=== PATIENT | male | born 1980 | race Caucasian/White ===

== ENCOUNTER 2016-12-17 20:30 | Inpatient (IN) | payer OTHER ==
[~2016-12-17] VITALS: Ht 170.2 cm; Wt 94.3 kg
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
[2016-12-17] MEDS ORDERED: KLONOPIN1 MG (21:09)
--- NOTE | 2016-12-17 21:33 | NUR ---
PT REMOVED SELF FROM MONITOR AND STATED "I AM LEAVING". PT PROCEEDED TO URINATE ON FLOOR. PT ENCOURAGED TO GET BACK IN BED. SECURITY AT BEDSIDE. PT LAID ON RIGHT SIDE AND PLACED BACK ON MONITOR. MD WATSON
[2016-12-17 21:38] LABS: BASOPHIL % 0.5 % (0-2); PLATELET COUNT 309 x10^3mcL (130-400); RED CELL DISTRIBUTION WIDTH 13.9 % (11.5-14.5)
[2016-12-17 21:41] LABS: AMPHETAMINE QUAL UR NONE DETECTED (NEG <=1000)
[2016-12-17 21:41] LABS: CALCIUM 8.4 mg/dL (8.5-10.1); CARBON DIOXIDE 22.1 mmol/L (21-32); CHLORIDE SERUM 112 mmol/L (98-107); CREATININE SERUM 1.2 mg/dL (0.7-1.3); GFR1 > 60 mL/min; GLUCOSE SERUM 89 mg/dL (74-106); POTASSIUM SERUM 3.6 mmol/L (3.5-5.1); SODIUM SERUM 149 mmol/L (136-145)
[2016-12-17 21:46] LABS: ALKALINE PHOSPHATASE 72 U/L (46-116); ALT/SGPT 21 U/L (16-63); AST/SGOT 25 U/L (15-37); BILIRUBIN TOTAL 0.32 mg/dL (0.20-1.00); TOTAL PROTEIN, SERUM 7.5 g/dL (6.4-8.2)
--- NOTE | 2016-12-17 21:49 | NUR ---
PT RESTING ON RIGHT SIDE. PT REMAINS MONITORED. LIGHTS TURNED OFF TO HELP CALM PATIENT. PT COVERED WITH BLANKET AND SCREEN REMAINS OPEN.
--- NOTE | 2016-12-17 22:27 | NUR ---
MRSA DONE, BELONGINGS LIST DONE, PT MEDICATED FOR AGITAION.
--- NOTE | 2016-12-17 23:00 | NUR ---
REPORT GIVEN TO ANGEL AT [id number]
[2016-12-17 23:35] VITALS: BP 96/69
--- NOTE | 2016-12-17 23:43 | NUR ---
REC'D AAOX2, LETHARGIC, COOPERATIVE AT THIS TIME. ON RA, NO SOB NOTED. ATTACHED TELE 29. IV SITE WNL. DENIES HEARING OTHER VOICES, DENIES OTHER PRESENCES/PEOPLE IN ROOM. STATES, "I AM SUICIDAL", DENIES SUICIDAL PLAN. ORIENTED TO ROOM AND SURROUNDINGS. CALL LIGHT WITHIN REACH, PROVIDED REPORT TO YUDITH WHITE FOR CONTINUITY OF CARE.
[2016-12-17 23:55] LABS: CHOLESTEROL/HDL RATIO 3.4; MAGNESIUM 2.3 mg/dL (1.8-2.4); PHOSPHOROUS 3.2 mg/dL (2.5-4.9)
[2016-12-17 23:56] LABS: T3 TOTAL 1.12 ng/mL
--- NOTE | 2016-12-18 00:03 | NUR ---
IVF NS STARTED @ 100CC/HR IV ACCESS @ LAC PATENT NON INFIL, PT EYES CLOSED SOUND ASLEEP, SITTER PROVIDED, CONT TO MONITOR.
[2016-12-18 01:33] LABS: FREE T4 1.31 ng/dL (0.76-1.46); FREE THYROXINE INDEX 3.6 ug/dL (1.4-4.5)
[2016-12-18 04:29] LABS: microscopic required? NO
[2016-12-18 04:56] LABS: UA SPECIFIC GRAVITY <=1.005 (1.005-1.035); urine erythrocyte NEGATIVE (NEGATIVE)
--- NOTE | 2016-12-18 05:50 | NUR ---
ENDORSE CARE TO INCOMING SHIFT, PT COOPERATIVE AND CALM AT THIS TIME, SITTER AT BEDSIDE.
[2016-12-18 05:51] VITALS: BP 101/58
--- NOTE | 2016-12-18 09:00 | NUR ---
PT ON BED, AWAKE, ALERT, AND ORIENTED. HAS NO COMPLAINT OF PAIN, SOB, OR DIZZINESS. RESPONDS WELL TO QUESTION AND ANSWER AT TIMES. CLEAR EPHRAIM LUNG FIELD, SYMMETRICAL CHEST EXPANSION AND UNLABORED. PT REUFSED TO RESPOND RN'S QUESTION ABOUT ANY SUICIDAL IDEATION. WILL CONTINUE TO MONITOR. PT UNDER CLOSE OBSERVATION
[2016-12-18 09:20] VITALS: BP 126/84
--- NOTE | 2016-12-18 13:00 | NUR ---
PT RESPOND TO THE QUESTION ABOUT SUICIDAL IDEATION. PT DENIES ANY SUICIDAL IDEATION. WILL CONTINUE TO MONITOR
[2016-12-18 14:00] VITALS: BP 107/71
[2016-12-18 17:43] VITALS: BP 100/70
--- NOTE | 2016-12-18 18:30 | NUR ---
PT ON BED, AWAKE, ALERT, AND ORIENTED. PT'S MOTHER AT BEDISDE. WILL CONTINUE TO MONITOR
--- NOTE | 2016-12-18 19:52 | NUR ---
AWAKE ALERT COOPERATIVE, ANSWERS QUESTIONS APPROPRIATELY, NO VERBALIZATION OF SUICIDAL ATTEMPT, SEEN BY PSYCHIATRIST AND CLEARED FROM 5150 HOLD, PT NOT ON 1:1 SUPERVISION, REALITY ORIENTATION AND SAFETY PREC EMPHASIZED, RECEPTIVE TO ALL INFO GIVEN, DENIES ANY PAIN OR DISCOMFORTS IVF INFUSING NS @ 50CC/HR IV ACCESS @ LAC PATENT NON INFIL, TELE #29 SR IN THE MONITOR NO CP OR PRESSURE SHIFT ASSESSMENT DONE, ATTENDED NEEDS CALL LIGHT AT REACH, CONT TO MONITOR.
[2016-12-18 21:50] VITALS: BP 114/79
--- NOTE | 2016-12-19 00:36 | NUR ---
REMOVED TELE MONITOR PER MD'S ORDER, PT ASLEEP, NO S/SX OF PAIN OR DISCOMFORTS, VISUAL CHECKED AT INTERVALS.
--- NOTE | 2016-12-19 05:55 | NUR ---
PT SLEPT WELL DURING THE SHIFT, NO BEHAV ISSUES, SR IN THE MONITOR, IVF INFUSING WELL ORDERED, CALL LIGHT AT REACH, NEEDS ATTENDED, DUE MEDS GIVEN CONT TO MONITOR.
[2016-12-19 06:00] LABS: BASOPHIL % 0.5 % (0-2); PLATELET COUNT 260 x10^3mcL (130-400)
[2016-12-19 06:26] VITALS: BP 126/76
[2016-12-19 06:30] LABS: CALCIUM 8.2 mg/dL (8.5-10.1); CARBON DIOXIDE 27.5 mmol/L (21-32); CHLORIDE SERUM 111 mmol/L (98-107); CREATININE SERUM 1.1 mg/dL (0.7-1.3); GFR1 > 60 mL/min; GLUCOSE SERUM 91 mg/dL (74-106); MAGNESIUM 1.9 mg/dL (1.8-2.4); PHOSPHOROUS 3.4 mg/dL (2.5-4.9); POTASSIUM SERUM 4.6 mmol/L (3.5-5.1); SODIUM SERUM 146 mmol/L (136-145)
[2016-12-19 06:36] LABS: RED CELL DISTRIBUTION WIDTH 14.7 % (11.5-14.5)
--- NOTE | 2016-12-19 07:55 | NUR ---
AWAKE,ALERT AND ORIENTED. CALM AND COOPERATIVE,CONT. IV FLUIDS ORDERED.AMBULATED IN THE BATHROOM AND VOIDING WELL. NO ACUTE DISTRESS NOTED. WILL CONT. PLAN OF CARE.
[2016-12-19 08:57] VITALS: BP 138/81
--- NOTE | 2016-12-19 09:10 | NUR ---
DR. CHOUDHARY HERE W/ OTHER MEDICAL STAFF MADE ROUNDS AND UPDATED PT. PLAN OF CARE.
--- NOTE | 2016-12-19 12:00 | NUR ---
PT. UP AND ABOUT IN HIS ROOM DENIES ANY PAIN. NO ACUTE DISTRESS NOTED. CALL LIGHT W/ IN REACH.
--- NOTE | 2016-12-19 14:45 | NUR ---
PT. WENT HOME W/ STABLE CONDITION AMBULATORY DISCHARGE INSTRUCTIONS GIVEN AND DISCUSS TO PT. AND VERBALIZED UNDERSTANDING OF INSTRUCTIONS GIVEN NO ACUTE DISTRESS NTED. PT. WENT HOME ALONE AND RIDE W/ [facility] BUS TICKET PROVIDED FROM THE HOSPITAL ESCORTED BY SHIRA IN THE LOBBY.
== END 2016-12-19 14:45 | disposition home or self-care (01) | DRG 775 ==
LOC: ED 20:30 → DU 22:15 → MU 12-19 00:52
PROVIDERS: Emergency Medicine; ADMIT Family Medicine
DX: F10.129 Alcohol abuse with intoxication, unspecified (principal); G92 Toxic encephalopathy; E87.0 Hyperosmolality and hypernatremia; E87.8 Other disorders of electrolyte and fluid balance, not elsewhere classified; F20.9 Schizophrenia, unspecified; F12.10 Cannabis abuse, uncomplicated; E66.9 Obesity, unspecified; F41.0 Panic disorder [episodic paroxysmal anxiety]; G90.9 Disorder of the autonomic nervous system, unspecified; E78.5 Hyperlipidemia, unspecified; Z68.32 Body mass index [BMI] 32.0-32.9, adult
CPT/HCPCS: 83880; 84439; G0480; J1200; J1630; J1670; J2060; J7030

== ENCOUNTER 2020-01-29 06:37 | Emergency (ER) | payer OTHER ==
[~2020-01-29] VITALS: Ht 180.3 cm; Wt 131.7 kg
[~2020-01-29 06:37] MED LIST: KLONOPIN1 MG
[2020-01-29 06:47] VITALS: BP 125/92; Ht 180.3 cm; Wt 131.7 kg
== END 2020-01-29 07:53 | disposition left against medical advice (07) ==
LOC: ED 06:37
DX: Z53.21 Procedure and treatment not carried out due to patient leaving prior to being seen by health care provider (principal)